=== PATIENT | female | born 1950 | race Caucasian/White ===

== ENCOUNTER → 2016-11-02 | Outpatient (CLI) | payer MEDICARE, OTHER ==
[~2016-11-02] MED LIST: /THIA10TA OR; /TIOT18INH INH; ACET65TA OR; BRIMONIDINE OU; BUTT PASTE TOP; Combigan OU; FOLI1TAB OR; HYDROCORTISONE0.5 % TOP; KLOR10TA OR; LASI20TA OR; LOPR50TA OR; MULTIVIT OR; PRED10TA2 OR; PRIL40CA OR; SYMB80AE IN; TAMO20TA OR; TIMOLOL OU; TRAVATAN Z 0.004%; TRAVATAN Z OPTH OU; XANA0.25 OR
--- NOTE | 2016-11-03 10:00 | RADONC ---
RADIATION ONCOLOGY FOLLOWUP NOTE DATE: 11/02/2016 CHART NUMBER: [id number]. DIAGNOSIS: Right breast cancer. STAGE: IIB, T2N1M0. ECOG PERFORMANCE STATUS: 0. FOLLOWUP NOTE: Ms. 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 The patient presents today reporting that she is doing quite well with no complaints at this time related to her radiation therapy or disease. She has no breast or bone pain. REVIEW OF SYSTEMS: The patient's review of systems is noncontributory. Denies nausea, vomiting, fevers, chills, night sweats, diplopia, headaches, anxiety or depression, anorexia, weight loss, visual disturbances, chest pain, urinary or bowel difficulties, bone pain, or neurological problems. PHYSICAL EXAMINATION: The patient is a well-developed, well-nourished, 66-year-old female in no acute distress. HEENT exam is normocephalic, atraumatic. Extraocular movements are intact. There is no palpable cervical, supraclavicular, infraclavicular, axillary, or inguinal lymphadenopathy present. Lungs are clear to auscultation and percussion. Heart has a regular rate and rhythm. Abdomen is benign with no hepatosplenomegaly, masses, or tenderness. Breast examination reveals no masses or discharge bilaterally. Skeletal examination reveals no tenderness to pressure or percussion of the bony skeleton. Extremities reveal no clubbing, cyanosis, or edema. Neurologic exam is grossly intact, as is the remainder of the physical examination. ASSESSMENT: The patient is clinically ENA at this time and will be seen by us again in 1 year for further followup. She will also continue be followed by her other physicians as well. cc: *Blas Faustin MD *Twyla Liz MD
== END ==
LOC: M ONCR 15:34
PROVIDERS: ATTEND Radiology Radiation Oncology
DX: C50.411 Malignant neoplasm of upper-outer quadrant of right female breast (principal)

== ENCOUNTER → 2016-11-15 | Outpatient (CLI) | payer MEDICARE, OTHER ==
--- NOTE | 2016-11-15 17:10 | REPMRS ---
Patient History The patient states she had a clinical breast exam in October 2016. Patient has history of breast cancer at age 61. No known family history of cancer. Taking tamoxifen. Digital Mammo Screening Bilat: November 15, 2016 - Exam #: [id number] Bilateral CC and MLO view(s) were taken. Technologist: Fanny Wilkerson, Technologist Prior study comparison: November 09, 2015, bilateral digital mammo screening bilat performed at [facility]. October 29, 2014, bilateral digital mammo screening bilat performed at [facility]. FINDINGS: There are scattered fibroglandular densities. There has been no change in the appearance of the mammogram from the prior studies. There is a mild amount of residual fibroglandular tissue which is fairly symmetric. There is no interval development of dominant mass, architectural distortion, or clustered microcalcification suggestive of malignancy. ASSESSMENT: BI-RADS/ACR category 1 mammogram. Negative. Recommendation Routine screening mammogram in 1 year (for women over age 40). This mammogram was interpreted with the aid of an FDA-approved computer-aided dectection system. Electronically Signed By: Robin Roblero MD 11/15/16 [id number]
== END ==
LOC: M RAD 16:13
PROVIDERS: ATTEND Radiology Radiation Oncology
DX: Z12.31 Encounter for screening mammogram for malignant neoplasm of breast (principal); Z85.3 Personal history of malignant neoplasm of breast